=== PATIENT | male | born 1990 | race Caucasian/White ===

== ENCOUNTER 2020-08-08 18:17 | Emergency (ER) | payer MEDICAID ==
[~2020-08-08] VITALS: Ht 185.4 cm; Wt 108.2 kg
[~2020-08-08 18:17] MED LIST: LEVE500T53 PO
[2020-08-08] MEDS ORDERED: LevETIRAcetam 1,000 MG in DEXTROSE 5%-WATER 100 ML IV ONE (19:30)
[2020-08-08 21:13] VITALS: BP 132/88
== END 2020-08-08 21:13 | disposition home or self-care (01) ==
LOC: EMS 18:17
DX: G40.909 Epilepsy, unspecified, not intractable, without status epilepticus (principal); F10.20 Alcohol dependence, uncomplicated
CPT/HCPCS: 96374; 99283; J0712; J7060

== ENCOUNTER 2024-11-11 22:05 | Emergency (ER) | payer MEDICAID ==
[~2024-11-11] VITALS: Ht 177.8 cm; Wt 85.0 kg
[~2024-11-11 22:05] MED LIST changes: +LEVE-71 PO; -LEVE500T53 PO
[2024-11-11] MEDS ORDERED: LevETIRAcetam 250 MG TABLET PO ONE (22:45)
[2024-11-11 23:00] LABS: BASOPHILS % (AUTO) 0.5 % (0.0-2.0); EOSINOPHILS % (AUTO) 0.7 % (1.0-6.0); HEMATOCRIT 42.8 % (41-53); HEMOGLOBIN 14.1 g/dL (13.5-17.5); LYMPHOCYTES # (AUTO) 0.4 K/uL (1.0-4.8); LYMPHOCYTES % (AUTO) 6.3 % (22.0-44.0); MEAN CORPUSCULAR HEMOGLOBIN 30.2 pg (26.0-34.0); MEAN CORPUSCULAR VOLUME 92 fL (80-100); MONOCYTES # (AUTO) 0.7 K/uL (0.1-1.0); MONOCYTES % (AUTO) 11.6 % (2.0-9.0); NEUTROPHILS # (AUTO) 5.1 K/uL (1.8-7.7); NEUTROPHILS % (AUTO) 80.9 % (40.0-70.0); PLATELET COUNT (AUTO) 184 K/uL (150-450); RED BLOOD CELL COUNT(AUTO) 4.68 MIL/uL (4.50-5.90); RED CELL DISTRIBUTION WIDTH 13.4 % (11.5-14.5); WHITE BLOOD COUNT (AUTO) 6.3 K/uL (4.5-11.0)
[2024-11-11 23:05] LABS: ANION GAP 6 mmol/L (8-16); CALCIUM, TOTAL 8.7 mg/dL (8.8-10.5); CARBON DIOXIDE 28 mmol/L (22-29); CHLORIDE 100 mmol/L (98-107); CREATININE 0.72 mg/dL (0.60-1.30); GLOMERULAR FILTR. RATE CALC > 60 mL/min (>60); GLUCOSE,RANDOM 99 mg/dL (70-110); POTASSIUM 3.9 mmol/L (3.5-5.1); SODIUM SERUM 134 mmol/L (136-145); UREA NITROGEN, BLOOD 10 mg/dL (7-18)
[2024-11-12] MEDS: KETOROLAC TROMETHAMINE 30 MG/ML VIAL IVP ONE (00:21)
[2024-11-12] MEDS: SODIUM CHLORIDE 0.9% 1,000 ML IV ONE (00:21)
[2024-11-12] MEDS: LevETIRAcetam 500 MG TABLET PO ONE (00:21)
[2024-11-12 00:47] LABS: PH,URINE DRUG SCREEN 7.5 (5.0-8.0)
[2024-11-12 01:00] VITALS: BP 135/78; PULSE 89; RESP 18; TEMP 98.3; O2SAT 100
[2024-11-12] MEDS ORDERED: LEVE-71 PO (01:05)
[2024-11-12 01:06] LABS: AMPHET/METH SCREEN,URINE POSITIVE (NEGATIVE); BARBITURATE SCREEN, URINE NEGATIVE (NEGATIVE); BENZODIAZEPINES SCREEN,URINE NEGATIVE (NEGATIVE); CANNABINOID SCREEN,URINE POSITIVE (NEGATIVE); COCAINE SCREEN,URINE NEGATIVE (NEGATIVE); METHADONE SCREEN, URINE NEGATIVE (NEGATIVE); OPIATE SCREEN,URINE NEGATIVE (NEGATIVE); PHENCYCLIDINE SCREEN,URINE NEGATIVE (NEGATIVE)
[2024-11-12 01:07] LABS: ALCOHOL, URINE DRUG SCREEN NEGATIVE (NEGATIVE)
== END 2024-11-12 01:58 | disposition home or self-care (01) ==
LOC: EMS 22:05
DX: G40.909 Epilepsy, unspecified, not intractable, without status epilepticus (principal); F15.10 Other stimulant abuse, uncomplicated; Z59.00 Homelessness unspecified; Z79.899 Other long term (current) drug therapy
CPT/HCPCS: 99283; 80048; 85025; 36415; 80307; 96374; 96361; G0480; J1885